=== PATIENT | female | born 1980 | race African-American/Black ===

== ENCOUNTER 2020-04-11 11:20 | Inpatient (IN) | payer MEDICAID, OTHER ==
[2020-04-11] VITALS (8 sets, daily range): BP systolic 123–142; BP diastolic 79–92
[~2020-04-11] VITALS: Ht 170.2 cm; Wt 72.6 kg
[~2020-04-11 11:20] MED LIST: CEPH-264 PO; IBUP-1060 PO; METO10TA81 PO; METR500T PO; ONDA4TAB7 PO
[2020-04-11] MEDS ORDERED: SUCCINYLCHOLINE 200 MG/10 ML VIAL. ONE (11:43)
[2020-04-11] MEDS ORDERED: BUTORPHANOL 2 MG/ML VIAL. IVP PRN ×2 (11:45)
[2020-04-11] MEDS ORDERED: BENZOCAINE 20% TOPICAL AEROSOL SPRAY 57GM CAN. TP PRN ×3 (11:45→13:00)
[2020-04-11] MEDS ORDERED: MMR per PROTOCOL. MC PRN ×3 (11:45→13:00)
[2020-04-11] MEDS ORDERED: TERBUTALINE 1 MG/ML VIAL. SQ PRN (11:45)
[2020-04-11] MEDS ORDERED: diphenhydrAMINE ORAL ELIXIR 12.5 MG/5 ML ML PO PRN ×2 (11:45→13:00)
[2020-04-11] MEDS ORDERED: ACETAMINOPHEN 325 MG TABLET. PO PRN ×3 (11:45→13:00)
[2020-04-11] MEDS ORDERED: TDaP (Adacel) per PROTOCOL. MC PRN ×3 (11:45→13:00)
[2020-04-11] MEDS ORDERED: OXYTOCIN 30 UNIT/500 ML PREMIX 500 ML IV PRN ×5 (11:45→13:00)
[2020-04-11] MEDS: IV RINGERS,LACTATED 1000ML 1,000 ML IV SCH ×2 (11:45→19:45)
[2020-04-11] MEDS ORDERED: LIDOCAINE 1% PF 30 ML VIAL. INJ PRN (11:45)
[2020-04-11] MEDS ORDERED: 0.9 % SODIUM CHLORIDE 10 ML DISP.SYRIN. IV PRN ×4 (11:45→13:00)
[2020-04-11] MEDS ORDERED: CITRIC ACID/SODIUM CITRATE 30 ML SOLUTION. PO ONE (12:00)
[2020-04-11] MEDS ORDERED: ceFAZolin SODIUM IV Push 1 GM VIAL. IVP ONE ×3 (12:03→12:36)
[2020-04-11] MEDS ORDERED: fentaNYL PF VIAL 100 MCG/2 ML VIAL ONE (12:12)
[2020-04-11 12:14] LABS: BASO % 1 % (0-3); EOS % 0 % (0-3); HEMATOCRIT 30.4 % (36.0-47.0); HEMOGLOBIN 9.6 g/dL (12.0-15.5); LYMPH # 2.9 x10^3/uL (1.0-4.8); LYMPH % 32 % (24-48); MEAN CORPUSCULAR HEMOGLOBIN 29 pg (25-35); MEAN CORPUSCULAR HGB CONC 32 g/dL (31-37); MEAN CORPUSCULAR VOLUME 93 fL (79-100); MONO # 0.8 x10^3/uL (0.0-1.1); MONO % 9 % (0-9); NEUT # 5.3 x10^3/uL (1.8-7.7); NEUT % 58 % (31-73); PLATELET COUNT 120 x10^3/uL (140-400); RED BLOOD COUNT 3.27 x10^6/uL (3.50-5.40); RED CELL DISTRIBUTION WIDTH 14.7 % (11.5-14.5); WHITE BLOOD COUNT 9.1 x10^3/uL (4.0-11.0)
[2020-04-11] MEDS ORDERED: DEXAMETHASONE SOD PHOS 4 MG/ML VIAL ONE (12:16)
[2020-04-11] MEDS ORDERED: METOCLOPRAMIDE HCL 10 MG/2 ML VIAL. ONE (12:16)
[2020-04-11] MEDS ORDERED: FAMOTIDINE 20 MG/2 ML VIAL ONE (12:16)
[2020-04-11] MEDS ORDERED: ONDANSETRON PF 4 MG/2 ML VIAL. ONE (12:16)
[2020-04-11] MEDS ORDERED: SEVOFLURANE 61 TO 120 MINUTES. IH ONE (12:16)
[2020-04-11] MEDS ORDERED: LIDOCAINE 1% PF 5 ML VIAL. ONE (12:35)
[2020-04-11] MEDS ORDERED: PROPOFOL 10 MG/ML (20ML) VIAL. IV ONE (12:35)
[2020-04-11] MEDS ORDERED: OXYTOCIN 10 UNIT/ML VIAL. ONE (12:35)
[2020-04-11] MEDS ORDERED: oxyCODONE/APAP 5/325 1 TAB TABLET PO PRN (13:00)
[2020-04-11] MEDS ORDERED: DOCUSATE SODIUM 100 MG CAPSULE. PO PRN (13:00)
[2020-04-11] MEDS ORDERED: KETOROLAC 30 MG/ML VIAL. IVP PRN (13:00)
--- NOTE | 2020-04-11 13:02 | RAD ---
Abdomen AP portable at 1238: Reason for examination: Status post emergency . Evaluate for bleed. There is no gross organomegaly seen. Psoas muscles appear symmetric. The bowel gas pattern is nonspec ific with no abnormal dilatation or apparent obstruction. No abnormal calcifications are seen. No acu te bony abnormalities are seen. IMPRESSION: Nonspecific nonobstructive bowel gas pattern. Electronically signed by: Ольга Tabor MD (04/11/2020 12:59 PM) [id number]
[2020-04-11] MEDS ORDERED: NALOXONE 0.4 MG/ML VIAL. IV PRN (13:30)
[2020-04-11] MEDS ORDERED: MORPHINE SULFATE 30 ML IV PRN (13:30)
--- NOTE | 2020-04-11 13:47 | PDOC1 ---
[facility] H&P Date of Admission: Date of Admission: Apr 11, 2020 at 11:20 History of Present Illness: EDC: [birth year] 39y @ 33.6 (unsure of dating criteria at this time, EDC provide by mom). The pt called her Marzipan Maker this am when she began bleeding heavily. She was advised by the Marzipan Maker to present to L&D. When she arrived at 1129, her heavy bleeding was confirmed. At the time the FHT was in 50s with the maternal HR being in the 110s. I was called shortly after admission. While I was on my way in the rest of the OR team was activated and the pt was preped for surgery. The pt was taken to the OR at 1149 and was intubated by 1157. The remainder of her hx wa gathered from previous admissions. The pts provider planned to provide (fax) her hx for this as soon as possible. PMH: Denies PSH: Denies Meds: PNV All: NKDA OBHx: TSVD x 4 SH: no tob, no EtOH FH: noncontributory Medications: Meds: Current Medications Medications (Trade) Dose Ordered Sig/Tom Route PRN Reason Start Time Stop Time Status Last Admin Dose Admin Ketorolac Tromethamine (Toradol 30mg Vial) 30 mg PRN Q6HRS PRN IVP INFLAMMATION 04/11/20 13:00 04/11/20 13:39 Allergies: Coded Allergies: No Known Drug Allergies (Unverified , 10/15/15) Physical Exam: PE: GENERAL: No apparent distress. Alert and oriented. HEENT: Head normocephalic, atraumatic. NECK: Supple LUNGS: Clear to auscultation. HEART: RRR, S1, S2 present, pulses intact ABDOMEN: Soft, positive bowel sounds. EXTREMITIES: No cyanosis or edema. NEUROLOGIC: Normal speech, normal tone PSYCHIATRIC: Normal affect, normal mood. SKIN: No ulceration. FHT: 50s no acels/no decels/no MLTV [place]: 1 min (abruption pattern) SVE: cl/Th/H Labs: Laboratory Tests Test 04/11/20 11:45 White Blood Count 9.1 x10^3/uL (4.0-11.0) Red Blood Count 3.27 x10^6/uL (3.50-5.40) L Hemoglobin 9.6 g/dL (12.0-15.5) L Hematocrit 30.4 % (36.0-47.0) L Mean Corpuscular Volume 93 fL (79-100) Mean Corpuscular Hemoglobin 29 pg (25-35) Mean Corpuscular Hemoglobin Concent 32 g/dL (31-37) Red Cell Distribution Width 14.7 % (11.5-14.5) H Platelet Count 120 x10^3/uL (140-400) L Neutrophils (%) (Auto) 58 % (31-73) Lymphocytes (%) (Auto) 32 % (24-48) Monocytes (%) (Auto) 9 % (0-9) Eosinophils (%) (Auto) 0 % (0-3) Basophils (%) (Auto) 1 % (0-3) Neutrophils # (Auto) 5.3 x10^3/uL (1.8-7.7) Lymphocytes # (Auto) 2.9 x10^3/uL (1.0-4.8) Monocytes # (Auto) 0.8 x10^3/uL (0.0-1.1) Eosinophils # (Auto) 0.0 x10^3/uL (0.0-0.7) Basophils # (Auto) 0.0 x10^3/uL (0.0-0.2) Platelet Estimate Pending Treponema pallidum Antibody Nonreactive (Nonreactive) Laboratory Tests 04/11/20 11:45 Laboratory Tests 04/11/20 11:45 Assessment & Plan: A/P 39y @ 33.6 1.) Will obtain records 2.) Abruption with obvious compromise taken the OR for emergency C/S 3.) Anemia Hgb 9.6 on admission, will repeat CBC and obtained coags PO 4.) Fetus cat III FHT 5.) GBS unk KB PALAFOX MD Apr 11, 2020 13:47
[2020-04-11 13:49] LABS: BASO % 0 % (0-3); EOS % 0 % (0-3); HEMATOCRIT 23.7 % (36.0-47.0); HEMOGLOBIN 7.4 g/dL (12.0-15.5); LYMPH # 1.5 x10^3/uL (1.0-4.8); LYMPH % 6 % (24-48); MEAN CORPUSCULAR HEMOGLOBIN 28 pg (25-35); MEAN CORPUSCULAR HGB CONC 31 g/dL (31-37); MEAN CORPUSCULAR VOLUME 91 fL (79-100); MONO # 1.5 x10^3/uL (0.0-1.1); MONO % 6 % (0-9); NEUT # 23.8 x10^3/uL (1.8-7.7); NEUT % 89 % (31-73); PLATELET COUNT 107 x10^3/uL (140-400); RED CELL DISTRIBUTION WIDTH 14.4 % (11.5-14.5); WHITE BLOOD COUNT 26.8 x10^3/uL (4.0-11.0)
[2020-04-11 14:00] LABS: PROTHROMBIN TIME PATIENT 15.2 SEC (11.7-14.0)
[2020-04-11 14:02] LABS: ANISOCYTOSIS SLIGHT
[2020-04-11 14:03] LABS: PLT ESTIMATE DECREASED (ADEQUATE); POLYCHROMASIA SLIGHT; SCHISTOCYTES OCC
--- NOTE | 2020-04-11 14:03 | PDOC4 ---
OPERATIVE NOTE: PreOp Dx: 1.) IUP @ 33.6, 2.) Abruption with obvious compromise, 3.) cat III FHT, 4.) Anemia, 5.) GBS unk PostOp Dx: same Procedure: Crash primary LTCS Surgeon: Herminia Palafox Anesthesia: Spinal EBL: 1200 cc Fluids: 2000 cc UOP: 50 cc Complications: None Findings: male delivered at 1159. Wt 5 lb 6 oz. APGARS 0/0/0. Nml maternal anatomy. Path: Cord gases, cord blood, placenta KB PALAFOX MD Apr 11, 2020 14:03
[2020-04-11 14:15] LABS: % BANDS 2 % (0-9); % LYMPHS 8 % (24-48); % METAS 1 % (0-0); % MONOS 5 % (0-10); % SEGS 84 % (35-66); ANISOCYTOSIS SLIGHT; NUCLEATED RBC 1; PLT ESTIMATE DECREASED (ADEQUATE); POLYCHROMASIA SLIGHT; SCHISTOCYTES OCC; TOXIC VACUOLATION SLIGHT
--- NOTE | 2020-04-11 14:26 | OP ---
DATE OF SURGERY: 04/11/2020 PREOPERATIVE DIAGNOSES: 1. Intrauterine at 33 weeks and 6 days. 2. Abruption with obvious compromise. 3. Category 3 heart tracing. 4. GBS unknown. POSTOPERATIVE DIAGNOSES: 1. Intrauterine at 33 weeks and 6 days. 2. Abruption with obvious compromise. 3. Category 3 heart tracing. 4. GBS unknown. PROCEDURE: Crash primary lower transverse . SURGEON: Manfred Palafox MD ANESTHESIA: General endotracheal intubation. ESTIMATED BLOOD LOSS: 1200 mL. FLUIDS: 2000 mL. URINE OUTPUT: 50 mL. COMPLICATIONS: None. FINDINGS: Male infant delivered at 1159, weighing 5 pounds 6 ounces with Apgars of 0, 0 and 0. Cord ABG with pH of less than 6.5 where the base excess could not be obtained. Cord VBG with a pH of 6.67 and a base excess of -23. Normal maternal anatomy noted. PATHOLOGY: Cord gases, cord blood, placenta. INDICATIONS: The patient is a 39-year-old 6, para 4-0-1-4, who presented to Labor and Delivery at 33 weeks and 6 days with heavy vaginal bleeding. When the bleeding began the patient called her medical supply technician, who advised her to present to Labor and Delivery. When the patient arrived at approximately 1129, she was confirmed to have heavy bleeding as well as heart tones in the 50s with a maternal heart rate being in the 110s. I was called shortly after admission and while on my way in, the OR team was activated and the patient was prepped for surgery. The patient was taken to the operating room by 1149 and was ready to be intubated by 1157. DESCRIPTION OF PROCEDURE: The patient was taken to the operating room where she was prepped and draped in a normal sterile fashion, prior to placement of the general endotracheal tube. Once the patient was intubated without difficulty, a Pfannenstiel skin incision was made, 2 cm above her pubic symphysis and carried down to underlying layer of fascia. The fascia was then nicked in the midline. The fascial incision was extended laterally with traction and countertraction. Gutierrez scissors were used to extend the fascial incision a little more. Superior aspect of the fascial incision was then grabbed with Luke clamps, elevated and underlying rectus muscle was dissected off bluntly. The midline of the rectus muscle was identified and , and the peritoneum was entered digitally. The peritoneal incision was then extended superiorly and inferiorly with good visualization of the bladder with traction and countertraction. At that point, the Santi ring was then placed into the abdomen to gain better view of the lower uterine segment. At that point, the lower uterine segment was incised in transverse fashion with a scalpel. The uterine incision was then extended with traction and countertraction. At that point, the infant's head was flexed and brought to the hysterotomy. The rest of infant was delivered atraumatically. The nose and mouth were bulb suctioned. The cord was clamped and cut immediately and handed over to the awaiting sand mill operator core sand. Placenta was then removed manually with significant amount of blood clots swept out of the lower uterine segment, approximately 500-750 mL of blood clots that appeared to have been there for at least some time. At that point, the uterus was cleared of all clots and debris. The uterine incision was then repaired with #1 chromic in a running locked fashion. A second layer of the same suture was used to imbricate. Good hemostasis was noted. At that point, the gutters were copiously irrigated and cleared of all clots and debris. The Santi ring was then removed. The peritoneum was then reapproximated with 2-0 Vicryl in a running fashion. The muscle was reapproximated with 2-0 Vicryl in a running fashion. The fascia was then closed with 0 Vicryl in a running fashion. The skin was then closed with 3-0 Monocryl in a subcuticular manner. The patient tolerated the procedure well. Sponges, laps, and needles were correct x 3. A 2 grams of Ancef were given during the procedure. The patient tolerated the procedure well and was taken to the recovery room in stable condition. MANFRED PALAFOX MD DR: LAM/reshma JOB#: [id number] / [id number] VICKY
[2020-04-11 14:34] LABS: BARBITURATES NEG (NEG); BENZODIAZEPINES NEG (NEG); CANNABINOIDS POS (NEG); COCAINE NEG (NEG); METHADONE NEG (NEG); OPIATES NEG (NEG); PHENCYCLIDINE NEG (NEG)
[2020-04-11 14:35] LABS: AMPHETAMINE/METHAMPHETAMINE NEG (NEG)
[2020-04-11] MEDS ORDERED: FERROUS SULFATE 325 MG TABLET. PO SCH (17:00)
[2020-04-11 18:22] LABS: BASO # 0.1 x10^3/uL (0.0-0.2); BASO % 0 % (0-3); EOS % 0 % (0-3); LYMPH # 0.7 x10^3/uL (1.0-4.8); LYMPH % 3 % (24-48); MEAN CORPUSCULAR HEMOGLOBIN 28 pg (25-35); MEAN CORPUSCULAR HGB CONC 31 g/dL (31-37); MEAN CORPUSCULAR VOLUME 90 fL (79-100); MONO # 0.8 x10^3/uL (0.0-1.1); MONO % 3 % (0-9); NEUT # 24.4 x10^3/uL (1.8-7.7); NEUT % 94 % (31-73); PLATELET COUNT 87 x10^3/uL (140-400); RED BLOOD COUNT 2.12 x10^6/uL (3.50-5.40); RED CELL DISTRIBUTION WIDTH 14.3 % (11.5-14.5)
[2020-04-11 18:28] LABS: HEMATOCRIT 19.2 % (36.0-47.0)
[2020-04-11 18:33] LABS: PROTHROMBIN TIME PATIENT 14.9 SEC (11.7-14.0)
--- NOTE | 2020-04-11 19:13 | PDOC ---
PROFESSOR OF [employer]ING PROGRESS NOTE Date of Service: DATE: 04/11/20 TIME: 19:13 Subjective: Pt with abd pain. Discussed coags with the pt. Discussed abruption. They presented to the hospital within 20 minutes of the bleeding starting. She never at anytime had abd pain. Explained that there was nothing they could have done to prevent this from happening. Objective: Vital Signs: Vital Signs Date Time Temp Pulse Resp B/P (MAP) Pulse Ox O2 Delivery O2 Flow Rate FiO2 04/11/20 15:11 18 100 Simple Mask 2.0 Vital Signs Date Time Temp Pulse Resp B/P (MAP) Pulse Ox O2 Delivery O2 Flow Rate FiO2 04/11/20 15:11 18 100 Simple Mask 2.0 Labs: Laboratory Tests Test 04/11/20 11:45 04/11/20 13:35 04/11/20 14:10 04/11/20 16:45 White Blood Count 9.1 x10^3/uL (4.0-11.0) 26.8 x10^3/uL (4.0-11.0) H Red Blood Count 3.27 x10^6/uL (3.50-5.40) L 2.60 x10^6/uL (3.50-5.40) L Hemoglobin 9.6 g/dL (12.0-15.5) L 7.4 g/dL (12.0-15.5) L Hematocrit 30.4 % (36.0-47.0) L 23.7 % (36.0-47.0) L Mean Corpuscular Volume 93 fL (79-100) 91 fL (79-100) Mean Corpuscular Hemoglobin 29 pg (25-35) 28 pg (25-35) Mean Corpuscular Hemoglobin Concent 32 g/dL (31-37) 31 g/dL (31-37) Red Cell Distribution Width 14.7 % (11.5-14.5) H 14.4 % (11.5-14.5) Platelet Count 120 x10^3/uL (140-400) L 107 x10^3/uL (140-400) L Neutrophils (%) (Auto) 58 % (31-73) 89 % (31-73) H Lymphocytes (%) (Auto) 32 % (24-48) 6 % (24-48) L Monocytes (%) (Auto) 9 % (0-9) 6 % (0-9) Eosinophils (%) (Auto) 0 % (0-3) 0 % (0-3) Basophils (%) (Auto) 1 % (0-3) 0 % (0-3) Neutrophils # (Auto) 5.3 x10^3/uL (1.8-7.7) 23.8 x10^3/uL (1.8-7.7) H Lymphocytes # (Auto) 2.9 x10^3/uL (1.0-4.8) 1.5 x10^3/uL (1.0-4.8) Monocytes # (Auto) 0.8 x10^3/uL (0.0-1.1) 1.5 x10^3/uL (0.0-1.1) H Eosinophils # (Auto) 0.0 x10^3/uL (0.0-0.7) 0.0 x10^3/uL (0.0-0.7) Basophils # (Auto) 0.0 x10^3/uL (0.0-0.2) 0.0 x10^3/uL (0.0-0.2) Platelet Estimate Decreased (ADEQUATE) Decreased (ADEQUATE) Polychromasia Slight Slight Anisocytosis Slight Slight Schistocytes Occ Occ Treponema pallidum Antibody Nonreactive (Nonreactive) Segmented Neutrophils % 84 % (35-66) H Band Neutrophils % 2 % (0-9) Lymphocytes % 8 % (24-48) L Monocytes % 5 % (0-10) Metamyelocytes % 1 % (0-0) H Nucleated Red Blood Cells 1 Toxic Vacuolation Slight Prothrombin Time 15.2 SEC (11.7-14.0) H Prothrombin Time INR 1.2 (0.8-1.1) H Activated Partial Thromboplast Time 35 SEC (24-38) Fibrinogen 179 mg/dL (200-440) L Urine Opiates Screen Neg (NEG) Urine Methadone Screen Neg (NEG) Urine Barbiturates Neg (NEG) Urine Phencyclidine Screen Neg (NEG) Urine Amphetamine/Methamphetamine Neg (NEG) Urine Benzodiazepines Screen Neg (NEG) Urine Cocaine Screen Neg (NEG) Urine Cannabinoids Screen Pos (NEG) Urine Ethyl Alcohol Neg (NEG) SARS-CoV-2 Antigen (Rapid) Negative (NEGATIVE) Test 04/11/20 18:00 White Blood Count 26.0 x10^3/uL (4.0-11.0) H Red Blood Count 2.12 x10^6/uL (3.50-5.40) L Hemoglobin 6.0 g/dL (12.0-15.5) *L Hematocrit 19.2 % (36.0-47.0) *L Mean Corpuscular Volume 90 fL (79-100) Mean Corpuscular Hemoglobin 28 pg (25-35) Mean Corpuscular Hemoglobin Concent 31 g/dL (31-37) Red Cell Distribution Width 14.3 % (11.5-14.5) Platelet Count 87 x10^3/uL (140-400) L Neutrophils (%) (Auto) 94 % (31-73) H Lymphocytes (%) (Auto) 3 % (24-48) L Monocytes (%) (Auto) 3 % (0-9) Eosinophils (%) (Auto) 0 % (0-3) Basophils (%) (Auto) 0 % (0-3) Neutrophils # (Auto) 24.4 x10^3/uL (1.8-7.7) H Lymphocytes # (Auto) 0.7 x10^3/uL (1.0-4.8) L Monocytes # (Auto) 0.8 x10^3/uL (0.0-1.1) Eosinophils # (Auto) 0.0 x10^3/uL (0.0-0.7) Basophils # (Auto) 0.1 x10^3/uL (0.0-0.2) Prothrombin Time 14.9 SEC (11.7-14.0) H Prothrombin Time INR 1.2 (0.8-1.1) H Activated Partial Thromboplast Time 31 SEC (24-38) Fibrinogen 194 mg/dL (200-440) L Laboratory Tests 04/11/20 11:45 04/11/20 13:35 04/11/20 18:00 Laboratory Tests 04/11/20 18:00 Physical Exam: GENERAL: No apparent distress. Alert and oriented. HEENT: Head normocephalic, atraumatic. NECK: Supple LUNGS: Clear to auscultation. HEART: RRR, S1, S2 present, pulses intact ABDOMEN: Soft, positive bowel sounds. EXTREMITIES: No cyanosis or edema. NEUROLOGIC: Normal speech, normal tone PSYCHIATRIC: Normal affect, normal mood. SKIN: No ulceration. Assessment & Plan: A/P 39y POD #0 s/p emergency C/S at 33.6 for abruption 1.) Abruption Hgb on admission 9.6. Immediately PO Hgb 7.4 and 4 hrs later 6.0, will transfuse 2U pRBC now 2.) Coags Plt decreasing since admission (120 -> 107 -> 87), will not transfuse plt at this time, Fibrinogen improving (179 -> 194). If coags do not improve s/p transfusion may transfer to ICU 3.) Anemia as above 4.) demise 5.) Covid neg 6.) chart reviewed 7.) Cont PO care KB PALAFOX MD Apr 11, 2020 19:13
[2020-04-11] MEDS ORDERED: IV NORMAL SALINE 1000ML BAG 1,000 ML IV SCH (19:30)
[2020-04-11] MEDS: IV NORMAL SALINE 1000ML BAG 1,000 ML IV SCH (19:31)
[2020-04-11] MEDS: FERROUS SULFATE 325 MG TABLET. PO SCH (23:30)
[2020-04-11] MEDS: DOCUSATE SODIUM 100 MG CAPSULE. PO PRN (23:30)
[2020-04-12 00:29] VITALS: BP 129/84
[2020-04-12] MEDS: IV RINGERS,LACTATED 1000ML 1,000 ML IV SCH ×2 (03:45→11:45)
[2020-04-12 05:09] LABS: BASO # 0.1 x10^3/uL (0.0-0.2); BASO % 0 % (0-3); EOS % 0 % (0-3); HEMATOCRIT 22.2 % (36.0-47.0); HEMOGLOBIN 7.3 g/dL (12.0-15.5); LYMPH # 1.7 x10^3/uL (1.0-4.8); LYMPH % 8 % (24-48); MEAN CORPUSCULAR HEMOGLOBIN 29 pg (25-35); MEAN CORPUSCULAR HGB CONC 33 g/dL (31-37); MEAN CORPUSCULAR VOLUME 87 fL (79-100); MONO # 2.1 x10^3/uL (0.0-1.1); MONO % 9 % (0-9); NEUT # 18.2 x10^3/uL (1.8-7.7); NEUT % 83 % (31-73); PLATELET COUNT 81 x10^3/uL (140-400); RED BLOOD COUNT 2.54 x10^6/uL (3.50-5.40); RED CELL DISTRIBUTION WIDTH 14.6 % (11.5-14.5); WHITE BLOOD COUNT 21.9 x10^3/uL (4.0-11.0)
[2020-04-12 06:00] VITALS: BP 130/88
[2020-04-12] MEDS ORDERED: MULTIVITAMIN with MINERAL TABLET. PO SCH (09:00)
[2020-04-12 09:45] VITALS: BP 136/89
[2020-04-12 09:45] LABS: ALBUMIN 1.6 g/dL (3.4-5.0); ALBUMIN/GLOBULIN RATIO 0.7 (1.0-1.7); CALCIUM 6.6 mg/dL (8.5-10.1); CREATININE 0.5 mg/dL (0.6-1.0); POTASSIUM 4.4 mmol/L (3.5-5.1); TOTAL BILIRUBIN 0.1 mg/dL (0.2-1.0); TOTAL PROTEIN 3.9 g/dL (6.4-8.2); URIC ACID 4.7 mg/dL (2.6-6.0)
[2020-04-12] MEDS: FERROUS SULFATE 325 MG TABLET. PO SCH ×2 (10:44→16:48)
[2020-04-12] MEDS: MULTIVITAMIN with MINERAL TABLET. PO SCH (10:44)
[2020-04-12] MEDS: IBUPROFEN 400 MG TABLET. PO PRN ×2 (10:44→20:58)
[2020-04-12] MEDS: PRENATAL MULTIVITAMIN TABLET. PO SCH (10:45)
[2020-04-12] MEDS: oxyCODONE/APAP 5/325 1 TAB TABLET PO PRN ×3 (10:45→20:59)
[2020-04-12] MEDS: DOCUSATE SODIUM 100 MG CAPSULE. PO PRN ×2 (10:46→16:48)
[2020-04-12 12:13] LABS: BASO # 0.1 x10^3/uL (0.0-0.2); BASO % 1 % (0-3); EOS % 0 % (0-3); HEMATOCRIT 21.6 % (36.0-47.0); HEMOGLOBIN 7.2 g/dL (12.0-15.5); LYMPH # 2.3 x10^3/uL (1.0-4.8); LYMPH % 11 % (24-48); MEAN CORPUSCULAR HEMOGLOBIN 29 pg (25-35); MEAN CORPUSCULAR HGB CONC 34 g/dL (31-37); MEAN CORPUSCULAR VOLUME 88 fL (79-100); MONO # 2.1 x10^3/uL (0.0-1.1); MONO % 10 % (0-9); NEUT # 16.8 x10^3/uL (1.8-7.7); NEUT % 79 % (31-73); PLATELET COUNT 81 x10^3/uL (140-400); RED BLOOD COUNT 2.46 x10^6/uL (3.50-5.40); RED CELL DISTRIBUTION WIDTH 14.6 % (11.5-14.5); WHITE BLOOD COUNT 21.3 x10^3/uL (4.0-11.0)
--- NOTE | 2020-04-12 12:22 | PDOC ---
TIP MENDER PROGRESS NOTE Date of Service: DATE: 04/12/20 TIME: 12:19 Subjective: Pt with good pain control. Sommer PO. Voiding. Minimal lochia. Discussed PIH labs Objective: Vital Signs: Vital Signs Date Time Temp Pulse Resp B/P (MAP) Pulse Ox O2 Delivery O2 Flow Rate FiO2 04/11/20 15:11 18 100 Simple Mask 2.0 04/11/20 17:30 97.9 78 142/86 (104) 97.9 Vital Signs Date Time Temp Pulse Resp B/P (MAP) Pulse Ox O2 Delivery O2 Flow Rate FiO2 04/12/20 10:45 16 Room Air 04/12/20 06:00 98.2 85 130/88 (102) 100 98.2 04/11/20 15:11 2.0 Labs: Laboratory Tests Test 04/11/20 13:35 04/11/20 14:10 04/11/20 16:45 04/11/20 18:00 White Blood Count 26.8 x10^3/uL (4.0-11.0) H 26.0 x10^3/uL (4.0-11.0) H Red Blood Count 2.60 x10^6/uL (3.50-5.40) L 2.12 x10^6/uL (3.50-5.40) L Hemoglobin 7.4 g/dL (12.0-15.5) L 6.0 g/dL (12.0-15.5) *L Hematocrit 23.7 % (36.0-47.0) L 19.2 % (36.0-47.0) *L Mean Corpuscular Volume 91 fL (79-100) 90 fL (79-100) Mean Corpuscular Hemoglobin 28 pg (25-35) 28 pg (25-35) Mean Corpuscular Hemoglobin Concent 31 g/dL (31-37) 31 g/dL (31-37) Red Cell Distribution Width 14.4 % (11.5-14.5) 14.3 % (11.5-14.5) Platelet Count 107 x10^3/uL (140-400) L 87 x10^3/uL (140-400) L Neutrophils (%) (Auto) 89 % (31-73) H 94 % (31-73) H Lymphocytes (%) (Auto) 6 % (24-48) L 3 % (24-48) L Monocytes (%) (Auto) 6 % (0-9) 3 % (0-9) Eosinophils (%) (Auto) 0 % (0-3) 0 % (0-3) Basophils (%) (Auto) 0 % (0-3) 0 % (0-3) Neutrophils # (Auto) 23.8 x10^3/uL (1.8-7.7) H 24.4 x10^3/uL (1.8-7.7) H Lymphocytes # (Auto) 1.5 x10^3/uL (1.0-4.8) 0.7 x10^3/uL (1.0-4.8) L Monocytes # (Auto) 1.5 x10^3/uL (0.0-1.1) H 0.8 x10^3/uL (0.0-1.1) Eosinophils # (Auto) 0.0 x10^3/uL (0.0-0.7) 0.0 x10^3/uL (0.0-0.7) Basophils # (Auto) 0.0 x10^3/uL (0.0-0.2) 0.1 x10^3/uL (0.0-0.2) Segmented Neutrophils % 84 % (35-66) H Band Neutrophils % 2 % (0-9) Lymphocytes % 8 % (24-48) L Monocytes % 5 % (0-10) Metamyelocytes % 1 % (0-0) H Nucleated Red Blood Cells 1 Toxic Vacuolation Slight Platelet Estimate Decreased (ADEQUATE) Polychromasia Slight Anisocytosis Slight Schistocytes Occ Prothrombin Time 15.2 SEC (11.7-14.0) H 14.9 SEC (11.7-14.0) H Prothrombin Time INR 1.2 (0.8-1.1) H 1.2 (0.8-1.1) H Activated Partial Thromboplast Time 35 SEC (24-38) 31 SEC (24-38) Fibrinogen 179 mg/dL (200-440) L 194 mg/dL (200-440) L Urine Opiates Screen Neg (NEG) Urine Methadone Screen Neg (NEG) Urine Barbiturates Neg (NEG) Urine Phencyclidine Screen Neg (NEG) Urine Amphetamine/Methamphetamine Neg (NEG) Urine Benzodiazepines Screen Neg (NEG) Urine Cocaine Screen Neg (NEG) Urine Cannabinoids Screen Pos (NEG) Urine Ethyl Alcohol Neg (NEG) SARS-CoV-2 Antigen (Rapid) Negative (NEGATIVE) Test 04/12/20 04:50 04/12/20 04:58 04/12/20 11:57 White Blood Count 21.9 x10^3/uL (4.0-11.0) H 21.3 x10^3/uL (4.0-11.0) H Red Blood Count 2.54 x10^6/uL (3.50-5.40) L 2.46 x10^6/uL (3.50-5.40) L Hemoglobin 7.3 g/dL (12.0-15.5) L 7.2 g/dL (12.0-15.5) L Hematocrit 22.2 % (36.0-47.0) L 21.6 % (36.0-47.0) L Mean Corpuscular Volume 87 fL (79-100) 88 fL (79-100) Mean Corpuscular Hemoglobin 29 pg (25-35) 29 pg (25-35) Mean Corpuscular Hemoglobin Concent 33 g/dL (31-37) 34 g/dL (31-37) Red Cell Distribution Width 14.6 % (11.5-14.5) H 14.6 % (11.5-14.5) H Platelet Count 81 x10^3/uL (140-400) L 81 x10^3/uL (140-400) L Neutrophils (%) (Auto) 83 % (31-73) H 79 % (31-73) H Lymphocytes (%) (Auto) 8 % (24-48) L 11 % (24-48) L Monocytes (%) (Auto) 9 % (0-9) 10 % (0-9) H Eosinophils (%) (Auto) 0 % (0-3) 0 % (0-3) Basophils (%) (Auto) 0 % (0-3) 1 % (0-3) Neutrophils # (Auto) 18.2 x10^3/uL (1.8-7.7) H 16.8 x10^3/uL (1.8-7.7) H Lymphocytes # (Auto) 1.7 x10^3/uL (1.0-4.8) 2.3 x10^3/uL (1.0-4.8) Monocytes # (Auto) 2.1 x10^3/uL (0.0-1.1) H 2.1 x10^3/uL (0.0-1.1) H Eosinophils # (Auto) 0.0 x10^3/uL (0.0-0.7) 0.0 x10^3/uL (0.0-0.7) Basophils # (Auto) 0.1 x10^3/uL (0.0-0.2) 0.1 x10^3/uL (0.0-0.2) Prothrombin Time 14.0 SEC (11.7-14.0) Prothrombin Time INR 1.1 (0.8-1.1) Activated Partial Thromboplast Time 30 SEC (24-38) Fibrinogen 223 mg/dL (200-440) Sodium Level 136 mmol/L (136-145) Potassium Level 4.4 mmol/L (3.5-5.1) Chloride Level 107 mmol/L (98-107) Carbon Dioxide Level 20 mmol/L (21-32) L Anion Gap 9 (6-14) Blood Urea Nitrogen 7 mg/dL (7-20) Creatinine 0.5 mg/dL (0.6-1.0) L Estimated GFR (Cockcroft-Gault) 168.0 BUN/Creatinine Ratio 14 (6-20) Glucose Level 94 mg/dL (70-99) Uric Acid 4.7 mg/dL (2.6-6.0) Calcium Level 6.6 mg/dL (8.5-10.1) L Total Bilirubin 0.1 mg/dL (0.2-1.0) L Aspartate Amino Transferase (AST) 31 U/L (15-37) Alanine Aminotransferase (ALT) 17 U/L (14-59) Alkaline Phosphatase 94 U/L (46-116) Lactate Dehydrogenase 314 U/L (81-234) H Total Protein 3.9 g/dL (6.4-8.2) L Albumin 1.6 g/dL (3.4-5.0) L Albumin/Globulin Ratio 0.7 (1.0-1.7) L Laboratory Tests 04/11/20 13:35 04/11/20 18:00 04/12/20 04:50 04/12/20 11:57 Laboratory Tests 04/12/20 04:58 Laboratory Tests 04/12/20 04:58 04/12/20 11:57 Physical Exam: GENERAL: No apparent distress. Alert and oriented. HEENT: Head normocephalic, atraumatic. NECK: Supple LUNGS: Clear to auscultation. HEART: RRR, S1, S2 present, pulses intact ABDOMEN: Soft, positive bowel sounds. EXTREMITIES: No cyanosis or edema. NEUROLOGIC: Normal speech, normal tone PSYCHIATRIC: Normal affect, normal mood. SKIN: No ulceration. FFNT below umb No C/C, 2+ edema Inc: C/D/I Assessment & Plan: A/P 39y POD #1 s/p emergency C/S at 33.6 for abruption 1.) PO- doing well, d/c [employer]IST 2.) Abruption Hgb on admission 9.6. Immediately PO Hgb 7.4 and 4 hrs later 6.0, 7.3 s/p 2U, CBC at noon 7.2, no underlying cause determined (preeclampsia, AMA, etc.) 3.) Coags Plt decreasing since admission (120 -> 107 -> 87 -> 81 -> 81), will not transfuse plt at this time, Fibrinogen improving (179 -> 194 -> 223). 4.) Edema BPs nml throughout admissions and , PIH sent, all returned nml except LDH (most likely related hemolysis) 5.) Anemia as above, if stable will no transfuse 6.) demise 7.) Covid neg 8.) Cont PO care KB PALAFOX MD Apr 12, 2020 12:22
[2020-04-12] MEDS: IV NORMAL SALINE 1000ML BAG 1,000 ML IV SCH (14:00)
[2020-04-12 16:00] VITALS: BP 149/83
[2020-04-12 21:49] VITALS: BP 151/92
[2020-04-13] VITALS (9 sets, daily range): BP systolic 134–155; BP diastolic 77–96
[2020-04-13] MEDS: oxyCODONE/APAP 5/325 1 TAB TABLET PO PRN ×3 (01:59→18:25)
[2020-04-13] MEDS: IBUPROFEN 400 MG TABLET. PO PRN ×2 (05:52→16:07)
[2020-04-13] MEDS: FERROUS SULFATE 325 MG TABLET. PO SCH ×2 (08:36→16:05)
[2020-04-13] MEDS: PRENATAL MULTIVITAMIN TABLET. PO SCH (08:36)
[2020-04-13] MEDS: DOCUSATE SODIUM 100 MG CAPSULE. PO PRN ×2 (08:37→16:07)
[2020-04-13] MEDS: MULTIVITAMIN with MINERAL TABLET. PO SCH (08:37)
[2020-04-13 09:00] LABS: RED BLOOD COUNT 2.04 x10^6/uL (3.50-5.40); RED CELL DISTRIBUTION WIDTH 14.4 % (11.5-14.5); WHITE BLOOD COUNT 12.4 x10^3/uL (4.0-11.0)
[2020-04-13 09:16] LABS: HEMATOCRIT 18.2 % (36.0-47.0); HEMOGLOBIN 6.1 g/dL (12.0-15.5)
--- NOTE | 2020-04-13 11:43 | PDOC ---
WAY INSPECTOR PROGRESS NOTE Date of Service: DATE: 04/13/20 TIME: 11:42 Subjective: Pt with good pain control. Sommer PO. Voiding. Minimal lochia. (+) flatus. Denies PAUL, changes in vision, or abd pain. Discussed how based on her BPs over the last 24 hrs it is more likely that she has preeclampsia and that it may have been a contributing factor to her developing an abruption. She state that she was induced at 37wk with he first for preeclampsia when she was found to have a severe range BP at an office visit. Objective: Vital Signs: Vital Signs Date Time Temp Pulse Resp B/P (MAP) Pulse Ox O2 Delivery O2 Flow Rate FiO2 04/12/20 09:45 97.9 76 20 136/89 (105) 100 Room Air 97.9 76 Vital Signs Date Time Temp Pulse Resp B/P (MAP) Pulse Ox O2 Delivery O2 Flow Rate FiO2 04/13/20 10:46 97.7 78 18 155/96 97.7 04/13/20 09:50 100 Room Air Labs: Laboratory Tests Test 04/12/20 11:57 04/13/20 07:30 White Blood Count 21.3 x10^3/uL (4.0-11.0) H 12.4 x10^3/uL (4.0-11.0) H Red Blood Count 2.46 x10^6/uL (3.50-5.40) L 2.04 x10^6/uL (3.50-5.40) L Hemoglobin 7.2 g/dL (12.0-15.5) L 6.1 g/dL (12.0-15.5) *L Hematocrit 21.6 % (36.0-47.0) L 18.2 % (36.0-47.0) *L Mean Corpuscular Volume 88 fL (79-100) 89 fL (79-100) Mean Corpuscular Hemoglobin 29 pg (25-35) 30 pg (25-35) Mean Corpuscular Hemoglobin Concent 34 g/dL (31-37) 34 g/dL (31-37) Red Cell Distribution Width 14.6 % (11.5-14.5) H 14.4 % (11.5-14.5) Platelet Count 81 x10^3/uL (140-400) L 77 x10^3/uL (140-400) L Neutrophils (%) (Auto) 79 % (31-73) H Lymphocytes (%) (Auto) 11 % (24-48) L Monocytes (%) (Auto) 10 % (0-9) H Eosinophils (%) (Auto) 0 % (0-3) Basophils (%) (Auto) 1 % (0-3) Neutrophils # (Auto) 16.8 x10^3/uL (1.8-7.7) H Lymphocytes # (Auto) 2.3 x10^3/uL (1.0-4.8) Monocytes # (Auto) 2.1 x10^3/uL (0.0-1.1) H Eosinophils # (Auto) 0.0 x10^3/uL (0.0-0.7) Basophils # (Auto) 0.1 x10^3/uL (0.0-0.2) Laboratory Tests 04/12/20 11:57 04/13/20 07:30 Laboratory Tests 04/13/20 07:30 Physical Exam: GENERAL: No apparent distress. Alert and oriented. HEENT: Head normocephalic, atraumatic. NECK: Supple LUNGS: Clear to auscultation. HEART: RRR, S1, S2 present, pulses intact ABDOMEN: Soft, positive bowel sounds. EXTREMITIES: No cyanosis. NEUROLOGIC: Normal speech, normal tone PSYCHIATRIC: Normal affect, normal mood. SKIN: No ulceration. Abd: S/NT/ND FFNT below umb Inc: C/D/I Ext: No C/C, 2+ edema Assessment & Plan: A/P 39y POD #2 s/p emergency C/S at 33.6 for abruption 1.) PO- doing well 2.) Abruption Hgb on admission 9.6. Immediately PO Hgb 7.4 and 4 hrs later 6.0, 7.3 s/p 2U, CBC at noon 7.2, preeclampsia likely contributor to abruption, repeat Hgb this am 6.1. Along with blood loss, Hgb be may be low due to hemoconcentration from contraction of the intravascular space secondary to vasospasm as well as capillary leaking. Will transfuse another 2U pRBC 3.) DIC Fibrinogen returned to nml POD #1, plts still decreasing but at slower rate (120 -> 107 -> 87 -> 81 -> 81 -> 77 (this am), no indication for plt transfusion at this time, abd exam benign 4.) Anemia as above, giving an additional 2U pRBC 5.) Thrombocytopenia as above 6.) Atypical preeclampsia will send UA to determine if any proteinuria, several mild range BPs over last 24hrs, pt with edema, but no other s/s of preeclampsia, PIH wnl except LDH 7.) demise 8.) Covid neg 9.) Cont PO care KB PALAFOX MD Apr 13, 2020 11:43
[2020-04-13] MEDS ORDERED: IBUP-1060 PO (11:48)
[2020-04-13] MEDS ORDERED: DOCU-109 PO (11:48)
[2020-04-13] MEDS ORDERED: FERR325T14 PO (11:48)
[2020-04-13] MEDS ORDERED: OXYC1TAB15 PO (11:48)
[2020-04-13 12:51] LABS: BILIRUBIN,URINE NEGATIVE (NEG); CLARITY,URINE CLEAR; COLOR,URINE YELLOW; NITRITE,URINE NEGATIVE (NEG); PH,URINE 6.5 (<5.0-8.0); PROTEIN,URINE NEGATIVE (NEG-TRACE)
[2020-04-13 13:04] LABS: BACTERIA,URINE 0 /HPF (0-FEW); WBC,URINE 0 /HPF (0-4)
[2020-04-13] MEDS: IV NORMAL SALINE 1000ML BAG 1,000 ML IV SCH (14:00)
[2020-04-13 16:14] LABS: HEMATOCRIT 25.5 % (36.0-47.0); HEMOGLOBIN 8.5 g/dL (12.0-15.5); RED BLOOD COUNT 2.91 x10^6/uL (3.50-5.40); WHITE BLOOD COUNT 14.9 x10^3/uL (4.0-11.0)
[2020-04-13 19:19] LABS: HEMATOCRIT 26.3 % (36.0-47.0); HEMOGLOBIN 8.9 g/dL (12.0-15.5); RED BLOOD COUNT 3.07 x10^6/uL (3.50-5.40); WHITE BLOOD COUNT 14.8 x10^3/uL (4.0-11.0)
--- NOTE | 2020-04-13 22:36 | DS ---
DATE OF DISCHARGE: 04/13/2020 ADMISSION DIAGNOSES: 1. Intrauterine at 33 weeks and 6 days by last menstrual period equal to a 25-week ultrasound. 2. Advanced maternal age. 3. Abruption with compromise. 4. Category 3 heart tracing. 5. Anemia. 6. Group B streptococcus unknown. 7. History of preeclampsia. DISCHARGE DIAGNOSES: 1. demise. 2. Advanced maternal age. 3. Abruption with compromise. 4. Category 3 heart tracing. 5. Anemia. 6. Group B streptococcus unknown. 7. Disseminated intravascular coagulopathy. 8. Thrombocytopenia. 9. History of preeclampsia. 10. Atypical preeclampsia. PROCEDURE: Emergency low transverse , transfusion of 4 units of packed red blood cells. BRIEF HOSPITAL COURSE: The patient is a 39-year-old 6, para 4-0-1-4, who presented to Labor and Delivery at 33 weeks and 6 days by LMP equal to a 25-week ultrasound with heavy bleeding. The patient states that the bleeding began, maybe, 30 minutes prior to her presentation to the hospital. The bleeding was not associated with any abdominal pain. The patient called her cloth checker, when the bleeding began, who advised her to come into the hospital. On presentation to Labor and Delivery, the patient's heavy bleeding was confirmed. Her cervix was closed. Moreover, when she was placed on the monitor at 1129, the fetus was found to have a category 3 heart tracing with a baseline in the 50s with no variability noted. Maternal heart rate was in the 110's. I was informed of the patient's arrival at 1131. On my way to the hospital, I called Labor and Delivery at 1134 to gather the specifics of the case. While on my way in, the patient was prepped for surgery. I arrived on campus around 1142. IV access was established, a Caba was placed and the patient was brought to the OR at 1149. The patient was prepped and draped. She was intubated at 1157 and the was initiated. The baby was delivered at 1159. See operative note for full detail. Despite resuscitation efforts, the baby's Apgars remained 0. Cord gases were obtained at delivery and reported to be an ABG with a pH of 6.5 and the base excess could not be obtained. The venous blood gas pH was found to be 6.67 with a base excess of -23. Discussion between the credit card specialist and the father, explained the situation of the baby and made it clear of the demise. Resuscitation efforts were stopped. At the completion of the , labs were obtained in the recovery room, revealing the patient to be in disseminated intravascular coagulopathy based on her thrombocytopenia and coagulation factor consumption. Her platelets returned at 107, down from 120 on admission and the fibrinogen was found to be 179. Her hemoglobin had dropped from 9.6 to 7.4. Labs were repeated 4 hours later revealing an improvement in her fibrinogen to 194 with a drop in her hemoglobin to 6.0 and her platelets were 87. Her vital signs remained stable. The patient was transfused 2 units of packed red blood cells. Her post-transfusion labs revealed a rise in hemoglobin to 7.3, less than expected, but only a slight drop in her platelets to 81. Over the night, the patient was noted to have significant edema, although her blood pressures had been normal during her hospitalization. Her blood pressures had also been normal throughout her course after reviewing her records. Her records did not include any ultrasound reports so it was unknown if the patient ever had a previa noted. PIH labs were obtained and returned normal with the exception of an elevated LDH, which was thought to be elevated due to hemolysis from the abruption/DIC. Her UA was negative for protein. At that time, it was thought that the preeclampsia was not the likely etiology of her abruption. By postop day #2, the patient began to have several mild range blood pressures making it more likely that she had atypical preeclampsia, which may have been a contributing factor to the abruption. On postoperative day #1, labs were repeated at noon roughly 4 hours after the transfusion. The labs revealed stable hemoglobin at 7.2, and platelets also were found to be stable at 81. On postoperative day #2, a repeat CBC revealed another drop in hemoglobin to 6.1 and platelets with a slight drop to 77. The patient's abdominal exam remained benign. She was transfused another 2 units of packed red blood cells. Her post-transfusion hemoglobin returned at 8.5. Her platelets were up to 84. The patient desired discharge home, so labs were repeated 4 hours posttransfusion where her hemoglobin remained stable and returned at 8.9 with her platelets returning at 90. Discussion was held with the patient regarding preeclampsia precautions. The patient was informed to return to the hospital for any changes, particularly headaches, changes in vision or abdominal pain. DISCHARGE INSTRUCTIONS: The patient was told not to lift anything greater than 20 pounds, have pelvic rest for [address] on narcotics. CALL IF: The patient was to call if she had headache, changes in vision, abdominal pain, fevers, chills, nausea, vomiting or any additional questions or concerns. FOLLOWUP APPOINTMENT: The patient was to follow up on 04/16 at 10:45 for incision and blood pressure check in my office. DISCHARGE MEDICATIONS: The patient was given a prescription for Percocet 5, 15 pills; Motrin 800 mg, 30 pills; Colace 100 mg, 30 pills and ferrous sulfate 325 mg, 30 pills. KB PALAFOX MD DR: LAM/nts JOB#: [id number] / [id number] VICKY
== END 2020-04-13 20:23 | disposition home or self-care (01) | DRG 786 ==
LOC: OBSVTOIN 11:20 → 3 SO LND 11:20 → 3 NORTH 17:20
PROVIDERS: ADMIT Obstetrics & Gynecology; ATTEND Obstetrics & Gynecology
PROC: 10D00Z1 Extraction of Products of Conception, Low, Open Approach (ICD-10-PCS; principal; 2020-04-11)
PROC: 30233N1 Transfusion of Nonautologous Red Blood Cells into Peripheral Vein, Percutaneous Approach (ICD-10-PCS; 2020-04-11)
DX: O36.8330 Maternal care for abnormalities of the fetal heart rate or rhythm, third trimester, not applicable or unspecified (principal); O45.023 Premature separation of placenta with disseminated intravascular coagulation, third trimester; O14.94 Unspecified pre-eclampsia, complicating childbirth; O99.02 Anemia complicating childbirth; D64.9 Anemia, unspecified; Z20.828 Contact with and (suspected) exposure to other viral communicable diseases; D69.6 Thrombocytopenia, unspecified; Z3A.33 33 weeks gestation of pregnancy; Z37.1 Single stillbirth
CPT/HCPCS: 36415; 74018; 80053; 80307; 81001; 83615; 84550; 85007; 85025; 85027; 85384; 85610; 85730; 86592; 86850; 86900; 86901; 86920; 87426; J0330; J0690; J1100; J1885; J2270; J2405; J2590; J2704; J2765; J3010; J3490; J7030; J7120; P9016; U0003; G0378

== ENCOUNTER → 2020-04-16 | Outpatient (CLI) | payer OTHER ==
[2020-04-13 20:22] VITALS: BP 135/93
[~2020-04-16] MED LIST changes: +DOCU-109 PO; +FERR325T14 PO; +OXYC1TAB15 PO
[2020-04-16 12:36] LABS: HEMATOCRIT 31.2 % (36.0-47.0); RED BLOOD COUNT 3.47 x10^6/uL (3.50-5.40); RED CELL DISTRIBUTION WIDTH 15.3 % (11.5-14.5); WHITE BLOOD COUNT 11.8 x10^3/uL (4.0-11.0)
[2020-04-16 12:48] LABS: ALBUMIN 2.5 g/dL (3.4-5.0); ALBUMIN/GLOBULIN RATIO 0.7 (1.0-1.7); CALCIUM 8.3 mg/dL (8.5-10.1); CREATININE 0.5 mg/dL (0.6-1.0); TOTAL BILIRUBIN 0.5 mg/dL (0.2-1.0); TOTAL PROTEIN 6.1 g/dL (6.4-8.2)
== END ==
LOC: LAB 12:03
PROVIDERS: ATTEND Obstetrics & Gynecology
DX: Z39.2 Encounter for routine postpartum follow-up (principal)
CPT/HCPCS: 36415; 80053; 83615; 84550; 85027